=== PATIENT | male | born 1995 | race Caucasian/White ===

== ENCOUNTER → 2019-07-26 | Emergency (ER) | payer OTHER ==
[~2019-07-26] VITALS: Ht 165.1 cm; Wt 59.0 kg
[~2019-07-26] MED LIST: CIPRO500 MG PO; KETO10TA2 PO
== END | disposition home or self-care (01) ==
LOC: ER 21:15
DX: N43.2 Other hydrocele (principal); R10.2 Pelvic and perineal pain; N50.811 Right testicular pain; N50.812 Left testicular pain

== ENCOUNTER 2022-12-29 18:15 | Emergency (ER) | payer OTHER ==
[~2022-12-29] VITALS: Ht 167.6 cm; Wt 57.6 kg
== END 2022-12-29 20:33 | disposition home or self-care (01) ==
LOC: ER 18:15
DX: L60.0 Ingrowing nail (principal)